=== PATIENT | female | born 1970 | race Caucasian/White ===

== ENCOUNTER 2017-01-15 06:20 | Day surgery (SDC) | payer OTHER ==
[~2017-01-15] VITALS: Ht 162.6 cm; Wt 106.1 kg
[2017-01-15] MEDS ORDERED: SUCCINYLCHOLINE CHLORIDE 20 MG/ML(QUELICIN) IVP ONE (09:54)
[2017-01-15] MEDS ORDERED: PROPOFOL 200MG/ 20ML VIAL (DIPRIVAN) IV ONE (09:54)
[2017-01-15] MEDS ORDERED: fentaNYL CITRATE/PF 100 MCG/2 ML AMP IVP ONE (09:54)
[2017-01-15] MEDS ORDERED: GLYCOPYRROLATE 0.2 MG/ML VIAL IJ ONE (09:54)
[2017-01-15] MEDS ORDERED: NS 1000 ML BAG IV ONE (09:54)
[2017-01-15] MEDS ORDERED: BUPIVACAINE /EPINEPHRINE/PF 0.5% 30 ML VIAL INJ ONE (09:54)
[2017-01-15] MEDS ORDERED: DEXAMETHASONE SOD PHOSPHATE 4 MG/ML VIAL IVP ONE (09:54)
[2017-01-15] MEDS ORDERED: LR 1,000 ML IV.SOLN IV ONE (09:54)
[2017-01-15] MEDS ORDERED: METOCLOPRAMIDE HCL 10 MG/2 ML VIAL IVP ONE (09:54)
[2017-01-15] MEDS ORDERED: ROCURONIUM BROMIDE 10 MG/ML (ZEMURON) IV ONE (09:54)
[2017-01-15] MEDS ORDERED: SEVOFLURANE 15 MIN GAS INH ONE (09:54)
[2017-01-15] MEDS ORDERED: MIDAZOLAM HCL 5 MG/5 ML VIAL IVP ONE (09:54)
[2017-01-15] MEDS ORDERED: KETOROLAC TROMETHAMINE 30 MG VIAL IVP ONE (09:54)
[2017-01-15] MEDS ORDERED: LR 1,000 ML IV ONE (12:02)
[2017-01-15] MEDS ORDERED: ONDANSETRON HCL 4 MG/2 ML VIAL IVP PRN ×3 (12:15→12:30)
[2017-01-15] MEDS ORDERED: ePHEDrine sulfate 50 MG/ML VIAL IVP PRN (12:15)
[2017-01-15] MEDS ORDERED: fentaNYL CITRATE/PF 100 MCG/2 ML AMP IVP PRN (12:15)
[2017-01-15] MEDS ORDERED: DIPHENHYDRAMINE INJ 50 MG/ML VIAL IVP PRN (12:15)
[2017-01-15] MEDS ORDERED: NALBUPHINE HCL 10 MG/ML AMP IVP PRN (12:15)
[2017-01-15] MEDS ORDERED: NALOXONE HCL 0.4 MG/ML AMP (NARCAN) IVP PRN (12:15)
[2017-01-15] MEDS ORDERED: OXYCODONE/ACETAMINOPHEN 5-325 TABLET PO PRN ×2 (12:30)
[2017-01-15] MEDS ORDERED: PROMETHAZINE HCL 25 MG/ML AMP IM PRN ×2 (12:30)
[2017-01-15] MEDS ORDERED: IBUPROFEN 600 MG TABLET PO PRN (12:30)
[2017-01-15] MEDS ORDERED: OXYCODONE/ACETAMINOPHEN 5-325 TABLET ONE (14:19)
== END 2017-01-15 15:10 | disposition home or self-care (01) ==
LOC: SDS 06:20 → SMU 06:20 → SDS 15:10
PROVIDERS: ATTEND Obstetrics & Gynecology
DX: Z30.2 Encounter for sterilization (principal); E66.01 Morbid (severe) obesity due to excess calories; T83.39XA Other mechanical complication of intrauterine contraceptive device, initial encounter; D64.9 Anemia, unspecified; G43.909 Migraine, unspecified, not intractable, without status migrainosus
CPT/HCPCS: 36415; 58563; 58670; 86886; 86900; 86901; 88305; J0330; J1100; J1885; J2250; J2704; J2765; J3010; J3490 ×2; J7030; J7120